=== PATIENT | male | born 1935 | race Caucasian/White ===

== ENCOUNTER → 2016-07-28 | Outpatient (CLI) | payer MEDICARE ==
[2016-07-28 13:30] LABS: ALBUMIN 3.9 GM/DL (3.2-5.2); ALBUMIN/GLOBULIN RATIO 1.22 (1.00-1.93); ALKALINE PHOSPHATASE 72 U/L (45-117); ALT/SGPT 27 U/L (12-78); ANION GAP 9 MEQ/L (8-16); AST/SGOT 15 U/L (15-37); BILIRUBIN,TOTAL 0.9 MG/DL (0.2-1.0); BLOOD UREA NITROGEN 18 MG/DL (7-18); CALCIUM LEVEL 8.8 MG/DL (8.8-10.2); CARBON DIOXIDE LEVEL 28 MEQ/L (21-32); CHLORIDE LEVEL 106 MEQ/L (98-107); CHOLESTEROL LEVEL 152 MG/DL (<200); CREATININE FOR GFR 0.94 MG/DL (0.70-1.30); GLOMERULAR FILTRATION RATE > 60.0 (>35); GLUCOSE, FASTING 123 MG/DL (83-110); MAGNESIUM LEVEL 2.3 MG/DL (1.8-2.4); POTASSIUM SERUM 4.1 MEQ/L (3.5-5.1); SODIUM LEVEL 143 MEQ/L (136-145); TOTAL PROTEIN 7.1 GM/DL (6.4-8.2); TRIGLYCERIDES LEVEL 77 MG/DL (<150)
== END ==
LOC: M WUC 09:04
PROVIDERS: ATTEND Nurse Practitioner Family
DX: I10 Essential (primary) hypertension (principal)

== ENCOUNTER → 2018-03-02 | Outpatient (CLI) | payer MEDICARE | LOC: M WUC 09:53 | DX: R91.8 Other nonspecific abnormal finding of lung field (principal); R06.02 Shortness of breath; R05 Cough | CPT/HCPCS: 71046 ==

== ENCOUNTER → 2021-03-10 | Outpatient (CLI) | payer MEDICARE ==
--- NOTE | 2021-03-10 10:00 | REP ---
INDICATION: J45.901 COMPARISON: 03/02/2018 TECHNIQUE: PA and lateral. FINDINGS: Mediastinum and cardiac silhouette are stable and within normal limits. Lung smith demonstrate chronic changes consistent with the given history of reactive airway disease. Subtle relatively new areas of opacity in the periphery of the right lower lung zone and left base may represent progressive chronic change versus mild acute airspace disease. No effusion. No pneumothorax. IMPRESSION: 1. Chronic changes similar to prior examination. 2. Relatively new areas of opacity as noted above may represent progressive chronic change versus mild acute airspace disease and correlation with physical examination/auscultation is recommended. <Electronically signed by Gregory Fletcher > 03/10/21 [id number]
== END ==
LOC: M WUC 09:18
PROVIDERS: ATTEND Physician Assistant Medical
DX: J98.4 Other disorders of lung (principal); J45.901 Unspecified asthma with (acute) exacerbation

== ENCOUNTER → 2021-03-30 | Outpatient (CLI) | payer MEDICARE ==
--- NOTE | 2021-03-30 14:26 | REP ---
INDICATION: ABN FINDING OF LUNG. COMPARISON: Chest x-ray 03/10/2021, 03/02/2018 TECHNIQUE: Noncontrast images with coronal and sagittal reconstructions provided FINDINGS: Patchy nodular infiltrates in the lateral segment right middle lobe and lateral basal and posterior basal segments of the right lower lobe extending into the deep sulcus there are also some curvilinear opacities in the posterior basal segment of the left lower lobe. Cylindrical bronchiectatic changes are seen in both lower lung zones and some tree in bud appearance of the nodular infiltrate in the right middle lobe peripherally is seen. This would correspond to the radiographic finding on the recent chest x-ray. Some apical pleuroparenchymal scarring is noted bilaterally, right slightly greater than left. No other nodules or infiltrates. No definite effusion. Heart is not enlarged. There is no pericardial thickening or effusion. Coronary artery calcifications seen as well as some atherosclerotic aortic calcifications. No aneurysm. No pathologic sized mediastinal, hilar, axillary or supraclavicular adenopathy. There is no hiatal hernia. Spine shows no compression deformity or focal lesion. There are minor degenerative changes throughout the thoracic region. The sternum, manubrium, medial clavicles, scapulae, humeral heads and visualized ribs are intact. The upper abdomen shows liver and spleen not enlarged and without focal lesion. Gallbladder without calcified stone or mass. The pancreas, adrenal glands, stomach, visualized small bowel loops were all unremarkable. There is a 2.9 cm cyst anteriorly in upper pole right kidney seen only in part. It has no complex features. IMPRESSION: 1. Patchy nodular infiltrates with tree-in-bud appearance peripherally in the lateral segment right middle lobe and more confluent infiltrate/atelectasis posteriorly in the right lower lobe. Bronchiectatic changes are evident in bilateral lungs and some lesser left lower lobe densities with air bronchograms within from those bronchiectatic airways noted. These may all be inflammatory change or fibrosis with superimposed inflammatory change. Follow-up is warranted to confirm improvement or stability. 2. No other significant or acute finding in the chest. 3 cm renal cyst on the right noted. <Electronically signed by Chicho Hopper > 03/30/21 [id number]
== END ==
LOC: M RAD 10:36
PROVIDERS: ATTEND Internal Medicine Pulmonary Disease
DX: R91.8 Other nonspecific abnormal finding of lung field (principal)

== ENCOUNTER → 2021-04-12 | Outpatient (REF) | payer MEDICARE | LOC: M LAB REF 15:09 | PROVIDERS: ATTEND Internal Medicine Pulmonary Disease | DX: J44.9 Chronic obstructive pulmonary disease, unspecified (principal) ==

== ENCOUNTER → 2021-06-14 | Outpatient (REF) | payer MEDICARE | LOC: M LAB REF 16:52 | PROVIDERS: ATTEND Internal Medicine Pulmonary Disease | DX: J44.9 Chronic obstructive pulmonary disease, unspecified (principal) ==

== ENCOUNTER → 2021-12-12 | Outpatient (CLI) | payer MEDICARE | LOC: M PLAIMG 13:27 | PROVIDERS: ATTEND Internal Medicine Pulmonary Disease | DX: R91.8 Other nonspecific abnormal finding of lung field (principal); J47.9 Bronchiectasis, uncomplicated ==

== ENCOUNTER → 2022-07-24 | Outpatient (CLI) | payer MEDICARE | LOC: M PLAIMG 13:52 | PROVIDERS: ATTEND Internal Medicine Pulmonary Disease | DX: J47.9 Bronchiectasis, uncomplicated (principal) ==

== ENCOUNTER → 2023-07-20 | Outpatient (CLI) | payer MEDICARE | LOC: M PLAIMG 13:06 | PROVIDERS: ATTEND Internal Medicine Pulmonary Disease | DX: R91.8 Other nonspecific abnormal finding of lung field (principal); J47.9 Bronchiectasis, uncomplicated ==

== ENCOUNTER 2023-08-04 18:10 | Inpatient (IN) | payer MEDICARE ==
[~2023-08-04] VITALS: Ht 172.7 cm; Wt 159.4 kg
[2023-08-04] MEDS ORDERED: LEVA0.6322 NEB (18:59)
[2023-08-04] MEDS ORDERED: FLUT1BLS2 INH (18:59)
[2023-08-04] MEDS: UNRESOLVED CLARIFICATION ENTRY XX STA (19:03)
[2023-08-04 19:06] LABS: BASO % 0.3 % (0.0-1.0); EOS # 0.3 10^3/uL (0.0-0.5); EOS % 2.5 % (0.0-3.0); HEMATOCRIT 42.7 % (42.0-52.0); HEMOGLOBIN 13.2 g/dl (13.5-17.5); LYMPH % 7.8 % (24.0-44.0); MEAN CORPUSCULAR HEMOGLOBIN 26.1 pg (27.0-33.0); MEAN CORPUSCULAR HGB CONC 30.9 g/dl (32.0-36.5); MEAN CORPUSCULAR VOLUME 84.4 fl (80.0-96.0); MONO # 0.8 10^3/uL (0.0-0.8); MONO % 6.3 % (2.0-8.0); NEUTROPHILS # 10.4 10^3/uL (1.5-8.5); NEUTROPHILS % 82.4 % (36.0-66.0); PLATELET COUNT, AUTOMATED 258 10^3/uL (150-450); RED BLOOD COUNT 5.06 10^6/uL (4.30-6.10); WHITE BLOOD COUNT 12.6 10^3/uL (4.0-10.0)
[2023-08-04 19:26] LABS: INR 1.1; PARTIAL THROMBOPLASTIN TIME 33.4 SECONDS (24.8-34.2); PROTHROMBIN TIME 13.9 SECONDS (12.5-14.5)
[2023-08-04 19:29] LABS: CPK CREATINE PHOSPHOKINASE 65 U/L (46-171)
[2023-08-04 19:30] LABS: ALBUMIN 3.5 G/DL (3.2-5.2); ALKALINE PHOSPHATASE 84 U/L (46-116); ALT/SGPT 18 U/L (7.0-40); AST/SGOT 11 U/L (<34); BILIRUBIN,DIRECT 0.4 MG/DL (<0.4); BLOOD UREA NITROGEN 31 MG/DL (9-23); CALCIUM LEVEL 8.2 MG/DL (8.3-10.6); CARBON DIOXIDE LEVEL 27 MMOL/L (20-31); CHLORIDE LEVEL 109 MMOL/L (98-107); CK-MB VALUE MASS 3.9 NG/ML (<3.6); CREATININE FOR GFR 0.92 MG/DL (0.70-1.30); GLOMERULAR FILTRATION RATE > 60.0 (>35); GLUCOSE, FASTING 124 MG/DL (74-106); POTASSIUM SERUM 4.1 MMOL/L (3.5-5.1); SODIUM LEVEL 141 MMOL/L (136-145); TOTAL PROTEIN 6.9 G/DL (5.7-8.2)
[2023-08-04 19:32] LABS: THYROID STIMULATING HORMONE 0.779 uIU/ML (0.55-4.78)
[2023-08-04] MEDS: IPRATROPIUM 0.5MG/ALBUTEROL 2.5MG INH SOL UD 3ML (DUONEB) NEB ONE (20:07)
[2023-08-04] MEDS: methylPREDNISolone 125MG 2ML VIAL IV ONE (22:29)
[2023-08-04] MEDS ORDERED: GUAI600T12 PO (22:45)
[2023-08-04] MEDS ORDERED: HOME MED LIST COMPLETE! XX SCH (22:50)
[2023-08-04] MEDS: fentaNYL 100 MCG/2 ML INJECTION IV ONE (23:23)
[2023-08-05] VITALS (10 sets, daily range): BP systolic 131–186; BP diastolic 77–92; TEMP 98.1–98.8; O2SAT 86–98
[2023-08-05] MEDS: NS 1,000 ML IV SCH (03:52)
[2023-08-05] MEDS: MORPHINE 2 MG/ML 1ML VIAL IV PRN (04:52)
[2023-08-05] MEDS: **hydrALAZINE HCL** 25 MG TAB PO ONE (05:27)
[2023-08-05] MEDS: MOM 30ML SUSPENSION UDC PO PRN (06:22)
[2023-08-05] MEDS ORDERED: MORPHINE 4 MG/ML 1ML VIAL IV PRN (09:35)
[2023-08-05] MEDS: IPRATROPIUM 0.5MG/ALBUTEROL 2.5MG INH SOL UD 3ML (DUONEB) NEB SCH (10:01)
[2023-08-05] MEDS: SYMBICORT 160/4.5MCG INHALER 6GM INH SCH (10:01)
[2023-08-05] MEDS: AMPICILLIN SOD/SULBACTAM SOD 3 GM in D5W MINI-BAG PLUS 100 ML IV SCH (12:04)
[2023-08-05] MEDS: SODIUM CHLORIDE NASAL 0.65% SPRAY BTL (OCEAN) SCH (14:12)
[2023-08-05] MEDS: FLUTICASONE PROP 0.05% NASAL SPRAY 16 GM (FLONASE) NARES SCH (14:14)
[2023-08-05] MEDS: CARBAMIDE PEROXIDE 6.5% OTIC SOLN 15ML AU SCH (14:14)
[2023-08-05] MEDS: HEPARIN SOD (PORCINE) 5000UNITS/ML 1ML VIAL/SYRINGE SQ SCH (14:17)
[2023-08-05] MEDS: FLUZONE HIGH DOSE(65YR UP)QUAD/PF 240MCG/0.7ML SYRINGE IM.IMMUN ONE (14:19)
[2023-08-05] MEDS: PREVNAR-20 VACCINE 0.5ML SYRINGE IM.IMMUN ONE (14:23)
[2023-08-05] MEDS: ASPIRIN 81MG ENTERIC TABLET PO SCH (20:18)
[2023-08-05] MEDS: ATORVASTATIN 20 MG TAB PO SCH (20:19)
[2023-08-05] MEDS: ADVAIR HFA 230/21MCG INHALER INH SCH (20:26)
[2023-08-06] VITALS (9 sets, daily range): BP systolic 133–170; BP diastolic 60–84; TEMP 97.4–99.1; O2SAT 78–97
[2023-08-06 06:05] LABS: HEMATOCRIT 36.9 % (42.0-52.0); HEMOGLOBIN 11.5 g/dl (13.5-17.5); MEAN CORPUSCULAR HEMOGLOBIN 25.8 pg (27.0-33.0); MEAN CORPUSCULAR HGB CONC 31.2 g/dl (32.0-36.5); MEAN CORPUSCULAR VOLUME 82.7 fl (80.0-96.0); PLATELET COUNT, AUTOMATED 219 10^3/uL (150-450); RED BLOOD COUNT 4.46 10^6/uL (4.30-6.10); WHITE BLOOD COUNT 16.6 10^3/uL (4.0-10.0)
[2023-08-06 06:21] LABS: BLOOD UREA NITROGEN 32 MG/DL (9-23); CALCIUM LEVEL 7.7 MG/DL (8.3-10.6); CARBON DIOXIDE LEVEL 28 MMOL/L (20-31); CHLORIDE LEVEL 108 MMOL/L (98-107); CREATININE FOR GFR 0.89 MG/DL (0.70-1.30); GLOMERULAR FILTRATION RATE > 60.0 (>35); GLUCOSE, FASTING 111 MG/DL (74-106); POTASSIUM SERUM 4.4 MMOL/L (3.5-5.1); SODIUM LEVEL 142 MMOL/L (136-145)
[2023-08-06] MEDS: TAMSULOSIN 0.4 MG CAP PO SCH (08:34)
[2023-08-06] MEDS ORDERED: ISOVUE-370 76% 100ML VIAL As Ordered ONE (10:29)
[2023-08-06] MEDS: ACETAMINOPHEN TAB 650MG DOSE (2X325MG) PO PRN (11:46)
[2023-08-06] MEDS ORDERED: ceFAZolin 1GM VIAL As Ordered ONE (13:35)
[2023-08-06] MEDS ORDERED: ONDANSETRON 4MG 2ML VIAL As Ordered ONE (13:39)
[2023-08-06] MEDS ORDERED: ROCURONIUM BROMIDE 50MG/5ML VIAL As Ordered ONE (13:39)
[2023-08-06] MEDS ORDERED: propofoL 200 MG/20 ML VIAL As Ordered ONE (13:39)
[2023-08-06] MEDS ORDERED: fentaNYL 100 MCG/2 ML INJECTION As Ordered ONE (13:39)
[2023-08-06] MEDS ORDERED: LIDOCAINE 2% 100MG/5ML SDV (FOR ANES.) As Ordered ONE (13:39)
[2023-08-06] MEDS ORDERED: ACETAMINOPHEN 1000MG 100ML IV BAG As Ordered ONE (13:42)
[2023-08-06] MEDS ORDERED: ETOMIDATE INJ 20MG/10ML VIAL As Ordered ONE (14:23)
[2023-08-06] MEDS: ceFAZolin 2 GM/D5W 50 ML IV BAG As Ordered ONE (14:45)
[2023-08-06] MEDS ORDERED: HYDROmorphone HCL 2MG/ML 1ML VIAL As Ordered ONE (15:41)
[2023-08-06] MEDS: IPRATROPIUM 0.5MG/ALBUTEROL 2.5MG INH SOL UD 3ML (DUONEB) NEB ONE (17:14)
[2023-08-06] MEDS: FUROSEMIDE 40MG/4ML VIAL IV ONE (17:21)
[2023-08-06] MEDS: methylPREDNISolone 125MG 2ML VIAL IV ONE (17:25)
[2023-08-06] MEDS ORDERED: methylPREDNISolone 40MG 1ML VIAL IV ONE (17:25)
[2023-08-06] MEDS ORDERED: methylPREDNISolone 125MG 2ML VIAL As Ordered ONE (17:27)
[2023-08-06 17:34] LABS: ABG BASE EXCESS 0.1 (-2.0-2.0); ABG HCO3 26.3 MMOL/L (22.0-26.0); ABG O2 SATURATION 91.3 % (95.0-99.0); ABG STANDARD HCO3 24.5 MMOL/L. (22.0-26.0); ABG TOTAL CO2 27.8 MMOL/L (23.0-31.0); ABG pH (ARTERIAL) 7.347 UNITS (7.350-7.450)
[2023-08-06] MEDS: IPRATROPIUM 0.5MG/ALBUTEROL 2.5MG INH SOL UD 3ML (DUONEB) NEB SCH (18:55)
[2023-08-06 19:39] LABS: LDH LACTATE DEHYDROGENASE 241 U/L (120-246)
[2023-08-06 19:40] LABS: BLOOD UREA NITROGEN 27 MG/DL (9-23); CALCIUM LEVEL 7.2 MG/DL (8.3-10.6); CARBON DIOXIDE LEVEL 28 MMOL/L (20-31); CHLORIDE LEVEL 107 MMOL/L (98-107); CREATININE FOR GFR 0.88 MG/DL (0.70-1.30); GLOMERULAR FILTRATION RATE > 60.0 (>35); GLUCOSE, FASTING 149 MG/DL (74-106); POTASSIUM SERUM 4.3 MMOL/L (3.5-5.1); SODIUM LEVEL 139 MMOL/L (136-145)
[2023-08-06] MEDS: ceFAZolin SOD 2 GM in IV 1 EA IV SCH (23:49)
[2023-08-07] MEDS: methylPREDNISolone 40MG 1ML VIAL IV SCH (03:27)
[2023-08-07 03:29] VITALS: BP 166/74; TEMP 97.7; O2SAT 96
[2023-08-07 05:56] LABS: HEMATOCRIT 35.1 % (42.0-52.0); MEAN CORPUSCULAR HEMOGLOBIN 25.7 pg (27.0-33.0); MEAN CORPUSCULAR HGB CONC 31.3 g/dl (32.0-36.5); PLATELET COUNT, AUTOMATED 206 10^3/uL (150-450); RED BLOOD COUNT 4.28 10^6/uL (4.30-6.10); WHITE BLOOD COUNT 11.8 10^3/uL (4.0-10.0)
[2023-08-07 06:24] LABS: BLOOD UREA NITROGEN 26 MG/DL (9-23); CALCIUM LEVEL 7.5 MG/DL (8.3-10.6); CARBON DIOXIDE LEVEL 30 MMOL/L (20-31); CHLORIDE LEVEL 103 MMOL/L (98-107); CREATININE FOR GFR 0.91 MG/DL (0.70-1.30); GLOMERULAR FILTRATION RATE > 60.0 (>35); GLUCOSE, FASTING 166 MG/DL (74-106); MAGNESIUM LEVEL 2.1 MG/DL (1.8-2.4); PHOSPHORUS LEVEL 3.5 MG/DL (2.4-5.1); POTASSIUM SERUM 4.1 MMOL/L (3.5-5.1); SODIUM LEVEL 139 MMOL/L (136-145)
[2023-08-07] MEDS ORDERED: KETOROLAC 30 MG/ML 1ML VIAL IV PRN (07:00)
[2023-08-07 07:33] VITALS: BP 172/78; TEMP 97.8; O2SAT 93
[2023-08-07] MEDS: ACETAMINOPHEN TAB 650MG DOSE (2X325MG) PO SCH (09:35)
[2023-08-07] MEDS: SENOKOT S TAB PO SCH (09:35)
[2023-08-07 12:08] VITALS: BP 152/70; TEMP 97.6; O2SAT 97
[2023-08-07 19:16] VITALS: BP 132/62; TEMP 98.2; O2SAT 96
[2023-08-07] MEDS: HEPARIN SOD (PORCINE) 5000UNITS/ML 1ML VIAL/SYRINGE SQ SCH (20:41)
[2023-08-07 20:44] VITALS: BP 140/63; TEMP 98.1; O2SAT 94
[2023-08-08] MEDS: PANTOPRAZOLE 20 MG TAB PO ONE (02:27)
[2023-08-08 04:52] VITALS: BP 132/69; TEMP 99; O2SAT 96
[2023-08-08 08:00] VITALS: BP 110/76; TEMP 99.3
[2023-08-08] MEDS: KETOROLAC 30 MG/ML 1ML VIAL IV SCH (15:00)
[2023-08-08 16:22] VITALS: BP 129/80; TEMP 98.2; O2SAT 93
[2023-08-08] MEDS: QUEtiapine FUMARATE 25 MG TAB PO SCH (18:00)
[2023-08-08 19:24] VITALS: BP 178/76; TEMP 98.2; O2SAT 90
[2023-08-08 20:30] VITALS: BP 178/80
[2023-08-08] MEDS: AUGMENTIN 875 MG TAB PO SCH (21:54)
[2023-08-08] MEDS: oxyCODONE 5MG TAB PO PRN (23:15)
[2023-08-09 04:11] VITALS: BP 168/78; TEMP 98.6; O2SAT 95
[2023-08-09 07:45] VITALS: BP 172/82; TEMP 98.9; O2SAT 94
[2023-08-09] MEDS: amLODIPine 5 MG TAB PO SCH (09:00)
[2023-08-09 12:03] VITALS: BP 182/89; O2SAT 90
[2023-08-09] MEDS: MOM 30ML SUSPENSION UDC PO SCH (12:20)
[2023-08-09] MEDS: OLANZapine INTRAMUSCULAR 10MG VIAL IM ONE (13:25)
[2023-08-09 15:35] VITALS: BP 162/72; TEMP 98.3; O2SAT 95
[2023-08-09 19:29] VITALS: BP 163/88; TEMP 97.6; O2SAT 96
[2023-08-09] MEDS: MIRALAX *UNIT DOSE* 17GM PACKET PO PRN (19:37)
[2023-08-09 23:39] VITALS: O2SAT 94
[2023-08-10] VITALS (17 sets, daily range): BP systolic 123–146; BP diastolic 59–80; TEMP 97.7–98.5; O2SAT 92–98
[2023-08-10] MEDS: HALOPERIDOL 5MG/ML 1ML VIAL IM PRN (04:04)
[2023-08-10 05:43] LABS: ABG BASE EXCESS 4.2 (-2.0-2.0); ABG HCO3 28.7 MMOL/L (22.0-26.0); ABG O2 SATURATION 97.5 % (95.0-99.0); ABG PARTIAL PRESSURE CO2 42.5 mmHg (35.0-45.0); ABG PARTIAL PRESSURE O2 96.2 mmHg (75.0-100.0); ABG STANDARD HCO3 28.3 MMOL/L. (22.0-26.0); ABG pH (ARTERIAL) 7.447 UNITS (7.350-7.450)
[2023-08-10] MEDS: LEVALBUTEROL 1.25MG 0.5ML CONCENTRATE NEB INH ONE (06:24)
[2023-08-10] MEDS: predniSONE 20 MG TAB PO SCH (08:21)
[2023-08-10] MEDS: QUEtiapine FUMARATE 25 MG TAB PO SCH (20:29)
[2023-08-10] MEDS: AMPICILLIN SOD/SULBACTAM SOD 3 GM in D5W MINI-BAG PLUS 100 ML IV SCH (21:00)
[2023-08-10] MEDS: NS 1,000 ML IV SCH (22:17)
[2023-08-11] VITALS (15 sets, daily range): BP systolic 98–136; BP diastolic 51–67; TEMP 96.9–97.7; O2SAT 92–100
[2023-08-11 00:52] LABS: HEMATOCRIT 32.7 % (42.0-52.0); HEMOGLOBIN 10.2 g/dl (13.5-17.5); MEAN CORPUSCULAR HEMOGLOBIN 26.1 pg (27.0-33.0); MEAN CORPUSCULAR HGB CONC 31.2 g/dl (32.0-36.5); MEAN CORPUSCULAR VOLUME 83.6 fl (80.0-96.0); PLATELET COUNT, AUTOMATED 231 10^3/uL (150-450); RED BLOOD COUNT 3.91 10^6/uL (4.30-6.10); WHITE BLOOD COUNT 20.2 10^3/uL (4.0-10.0)
[2023-08-11 01:23] LABS: BLOOD UREA NITROGEN 61 MG/DL (9-23); CALCIUM LEVEL 7.4 MG/DL (8.3-10.6); CARBON DIOXIDE LEVEL 33 MMOL/L (20-31); CHLORIDE LEVEL 106 MMOL/L (98-107); CREATININE FOR GFR 0.99 MG/DL (0.70-1.30); GLOMERULAR FILTRATION RATE > 60.0 (>35); GLUCOSE, FASTING 115 MG/DL (74-106); SODIUM LEVEL 141 MMOL/L (136-145)
[2023-08-11] MEDS: predniSONE 10MG TAB PO SCH (10:45)
[2023-08-11] MEDS: NS 500 ML IV ONE (18:02)
[2023-08-12 03:31] VITALS: BP 129/60; TEMP 98; O2SAT 97
[2023-08-12 07:43] VITALS: BP 110/54; TEMP 97.5; O2SAT 99
[2023-08-12 08:29] LABS: BASO % 0.1 % (0.0-1.0); EOS % 0.2 % (0.0-3.0); HEMATOCRIT 32.1 % (42.0-52.0); HEMOGLOBIN 9.9 g/dl (13.5-17.5); LYMPH # 0.7 10^3/uL (1.5-5.0); LYMPH % 3.1 % (24.0-44.0); MEAN CORPUSCULAR HGB CONC 30.8 g/dl (32.0-36.5); MEAN CORPUSCULAR VOLUME 84.3 fl (80.0-96.0); MONO # 1.1 10^3/uL (0.0-0.8); MONO % 4.5 % (2.0-8.0); NEUTROPHILS # 21.6 10^3/uL (1.5-8.5); NEUTROPHILS % 91.3 % (36.0-66.0); PLATELET COUNT, AUTOMATED 248 10^3/uL (150-450); RED BLOOD COUNT 3.81 10^6/uL (4.30-6.10); WHITE BLOOD COUNT 23.7 10^3/uL (4.0-10.0)
[2023-08-12 08:51] LABS: BLOOD UREA NITROGEN 60 MG/DL (9-23); CALCIUM LEVEL 7.2 MG/DL (8.3-10.6); CARBON DIOXIDE LEVEL 34 MMOL/L (20-31); CHLORIDE LEVEL 107 MMOL/L (98-107); CREATININE FOR GFR 0.99 MG/DL (0.70-1.30); GLOMERULAR FILTRATION RATE > 60.0 (>35); GLUCOSE, FASTING 148 MG/DL (74-106); POTASSIUM SERUM 4.6 MMOL/L (3.5-5.1); SODIUM LEVEL 142 MMOL/L (136-145)
[2023-08-12] MEDS: LEVALBUTEROL 1.25MG 0.5ML CONCENTRATE NEB INH PRN (08:52)
[2023-08-12] MEDS: BISACODYL 10MG SUPP PR ONE (09:32)
[2023-08-12] MEDS: FLEET ENEMA PR ONE (15:20)
[2023-08-12] MEDS: NS 500 ML IV ONE (15:38)
[2023-08-12 16:00] VITALS: BP 129/59; TEMP 97; O2SAT 92
[2023-08-12 19:36] VITALS: BP 135/61; TEMP 98.8; O2SAT 92
[2023-08-12 20:00] VITALS: BP 120/46; TEMP 97.9; O2SAT 91
[2023-08-13 05:38] VITALS: BP 92/40; TEMP 97.9; O2SAT 94
[2023-08-13] MEDS: predniSONE 20 MG TAB PO SCH (08:26)
[2023-08-13 09:42] VITALS: BP 119/61; TEMP 97; O2SAT 94
[2023-08-13 10:01] LABS: BASO % 0.1 % (0.0-1.0); EOS % 0.1 % (0.0-3.0); HEMATOCRIT 30.4 % (42.0-52.0); HEMOGLOBIN 9.4 g/dl (13.5-17.5); LYMPH # 0.6 10^3/uL (1.5-5.0); LYMPH % 3.1 % (24.0-44.0); MEAN CORPUSCULAR HEMOGLOBIN 26.1 pg (27.0-33.0); MEAN CORPUSCULAR HGB CONC 30.9 g/dl (32.0-36.5); MEAN CORPUSCULAR VOLUME 84.4 fl (80.0-96.0); MONO # 0.8 10^3/uL (0.0-0.8); MONO % 4.3 % (2.0-8.0); NEUTROPHILS # 17.1 10^3/uL (1.5-8.5); NEUTROPHILS % 91.4 % (36.0-66.0); PLATELET COUNT, AUTOMATED 252 10^3/uL (150-450); WHITE BLOOD COUNT 18.7 10^3/uL (4.0-10.0)
[2023-08-13 10:20] LABS: BLOOD UREA NITROGEN 51 MG/DL (9-23); CALCIUM LEVEL 7.3 MG/DL (8.3-10.6); CARBON DIOXIDE LEVEL 31 MMOL/L (20-31); CHLORIDE LEVEL 109 MMOL/L (98-107); CREATININE FOR GFR 0.84 MG/DL (0.70-1.30); GLOMERULAR FILTRATION RATE > 60.0 (>35); GLUCOSE, FASTING 132 MG/DL (74-106); POTASSIUM SERUM 5.1 MMOL/L (3.5-5.1); SODIUM LEVEL 142 MMOL/L (136-145)
[2023-08-13 12:00] VITALS: BP 131/51
[2023-08-13] MEDS: NS 1,000 ML IV ONE (12:57)
[2023-08-13 15:19] VITALS: BP 133/53; TEMP 97.5; O2SAT 96
[2023-08-13 21:42] VITALS: BP 131/68; TEMP 97.5; O2SAT 91
[2023-08-13] MEDS: PERMETHRIN 5% CREAM 60 GM TOP ONE (23:25)
[2023-08-14 05:06] VITALS: BP 131/68; TEMP 97.5; O2SAT 91
[2023-08-14 06:25] LABS: BASO % 0.2 % (0.0-1.0); EOS # 0.1 10^3/uL (0.0-0.5); EOS % 0.7 % (0.0-3.0); HEMATOCRIT 28.6 % (42.0-52.0); HEMOGLOBIN 8.7 g/dl (13.5-17.5); LYMPH # 1.1 10^3/uL (1.5-5.0); LYMPH % 6.3 % (24.0-44.0); MEAN CORPUSCULAR HEMOGLOBIN 25.2 pg (27.0-33.0); MEAN CORPUSCULAR HGB CONC 30.4 g/dl (32.0-36.5); MEAN CORPUSCULAR VOLUME 82.9 fl (80.0-96.0); MONO # 1.1 10^3/uL (0.0-0.8); MONO % 6.5 % (2.0-8.0); NEUTROPHILS # 14.5 10^3/uL (1.5-8.5); NEUTROPHILS % 84.1 % (36.0-66.0); PLATELET COUNT, AUTOMATED 272 10^3/uL (150-450); RED BLOOD COUNT 3.45 10^6/uL (4.30-6.10); WHITE BLOOD COUNT 17.2 10^3/uL (4.0-10.0)
[2023-08-14 06:53] LABS: BLOOD UREA NITROGEN 40 MG/DL (9-23); CALCIUM LEVEL 7.3 MG/DL (8.3-10.6); CARBON DIOXIDE LEVEL 29 MMOL/L (20-31); CHLORIDE LEVEL 111 MMOL/L (98-107); CREATININE FOR GFR 0.76 MG/DL (0.70-1.30); GLOMERULAR FILTRATION RATE > 60.0 (>35); GLUCOSE, FASTING 105 MG/DL (74-106); POTASSIUM SERUM 4.5 MMOL/L (3.5-5.1); SODIUM LEVEL 142 MMOL/L (136-145)
[2023-08-14 14:00] VITALS: BP 138/69; TEMP 97.5; O2SAT 94
[2023-08-14] MEDS: OLANZapine INTRAMUSCULAR 10MG VIAL IM PRN (15:38)
[2023-08-14 22:38] VITALS: BP 140/71; TEMP 97.3; O2SAT 93
[2023-08-15] MEDS ORDERED: HALOPERIDOL DECANOATE 100 MG/ML 1ML VIAL IM ONE (00:05)
[2023-08-15] MEDS ORDERED: HALOPERIDOL 5MG/ML 1ML VIAL IM PRN (00:15)
[2023-08-15] MEDS ORDERED: HALOPERIDOL 5MG/ML 1ML VIAL IM ONE (01:00)
[2023-08-15 06:00] VITALS: BP 152/78; TEMP 97.7; O2SAT 97
[2023-08-15 06:29] LABS: BASO % 0.3 % (0.0-1.0); EOS # 0.1 10^3/uL (0.0-0.5); EOS % 0.7 % (0.0-3.0); HEMATOCRIT 28.6 % (42.0-52.0); HEMOGLOBIN 8.8 g/dl (13.5-17.5); LYMPH # 1.1 10^3/uL (1.5-5.0); LYMPH % 8.5 % (24.0-44.0); MEAN CORPUSCULAR HEMOGLOBIN 25.7 pg (27.0-33.0); MEAN CORPUSCULAR HGB CONC 30.8 g/dl (32.0-36.5); MEAN CORPUSCULAR VOLUME 83.4 fl (80.0-96.0); MONO % 7.5 % (2.0-8.0); NEUTROPHILS # 10.8 10^3/uL (1.5-8.5); NEUTROPHILS % 80.5 % (36.0-66.0); PLATELET COUNT, AUTOMATED 295 10^3/uL (150-450); RED BLOOD COUNT 3.43 10^6/uL (4.30-6.10); WHITE BLOOD COUNT 13.4 10^3/uL (4.0-10.0)
[2023-08-15 06:51] LABS: BLOOD UREA NITROGEN 33 MG/DL (9-23); CALCIUM LEVEL 7.5 MG/DL (8.3-10.6); CARBON DIOXIDE LEVEL 28 MMOL/L (20-31); CHLORIDE LEVEL 109 MMOL/L (98-107); CREATININE FOR GFR 0.75 MG/DL (0.70-1.30); GLOMERULAR FILTRATION RATE > 60.0 (>35); GLUCOSE, FASTING 83 MG/DL (74-106); POTASSIUM SERUM 4.2 MMOL/L (3.5-5.1); SODIUM LEVEL 139 MMOL/L (136-145)
[2023-08-15] MEDS: predniSONE 10MG TAB PO SCH (09:00)
[2023-08-15 23:00] VITALS: BP 102/65; TEMP 97.3; O2SAT 97
[2023-08-16] MEDS: OLANZapine INTRAMUSCULAR 10MG VIAL IM SCH ×2 (00:04→15:01)
[2023-08-16 05:59] VITALS: BP 165/69; TEMP 97.2; O2SAT 97
[2023-08-16 06:42] LABS: BASO # 0.1 10^3/uL (0.0-0.2); BASO % 0.3 % (0.0-1.0); EOS # 0.2 10^3/uL (0.0-0.5); EOS % 1.5 % (0.0-3.0); HEMATOCRIT 29.6 % (42.0-52.0); HEMOGLOBIN 9.4 g/dl (13.5-17.5); LYMPH % 6.8 % (24.0-44.0); MEAN CORPUSCULAR HEMOGLOBIN 26.1 pg (27.0-33.0); MEAN CORPUSCULAR HGB CONC 31.8 g/dl (32.0-36.5); MEAN CORPUSCULAR VOLUME 82.2 fl (80.0-96.0); MONO % 6.8 % (2.0-8.0); NEUTROPHILS # 12.1 10^3/uL (1.5-8.5); NEUTROPHILS % 81.9 % (36.0-66.0); PLATELET COUNT, AUTOMATED 287 10^3/uL (150-450); WHITE BLOOD COUNT 14.8 10^3/uL (4.0-10.0)
[2023-08-16 07:08] LABS: BLOOD UREA NITROGEN 31 MG/DL (9-23); CALCIUM LEVEL 7.3 MG/DL (8.3-10.6); CARBON DIOXIDE LEVEL 24 MMOL/L (20-31); CHLORIDE LEVEL 111 MMOL/L (98-107); GLOMERULAR FILTRATION RATE > 60.0 (>35); GLUCOSE, FASTING 60 MG/DL (74-106); POTASSIUM SERUM 4.4 MMOL/L (3.5-5.1); SODIUM LEVEL 141 MMOL/L (136-145)
[2023-08-16] MEDS: D5W/0.9% SODIUM CHLORIDE 1,000 ML IV ONE (12:58)
[2023-08-16] MEDS ORDERED: GLUCOSE 4GM CHEW TABLET PO PRN (13:55)
[2023-08-16] MEDS ORDERED: GLUCAGON INJ 1MG VIAL SC PRN (13:55)
[2023-08-16] MEDS ORDERED: DEXTROSE 50% 50ML SYRINGE IV PRN (13:55)
[2023-08-16 14:00] VITALS: TEMP 97.5; O2SAT 99
[2023-08-16 14:14] VITALS: BP 132/64
[2023-08-16] MEDS: KETOROLAC 30 MG/ML 1ML VIAL IV ONE (15:00)
[2023-08-16 20:38] VITALS: BP 132/67; TEMP 97.7; O2SAT 100
[2023-08-17 01:30] VITALS: BP 110/86; TEMP 97.2; O2SAT 95
[2023-08-17 02:46] VITALS: O2SAT 98
[2023-08-17 05:39] VITALS: BP 136/64; TEMP 97; O2SAT 98
[2023-08-17 06:27] LABS: BASO % 0.2 % (0.0-1.0); EOS # 0.2 10^3/uL (0.0-0.5); EOS % 1.3 % (0.0-3.0); HEMATOCRIT 28.9 % (42.0-52.0); HEMOGLOBIN 8.9 g/dl (13.5-17.5); LYMPH # 0.7 10^3/uL (1.5-5.0); LYMPH % 4.1 % (24.0-44.0); MEAN CORPUSCULAR HGB CONC 30.8 g/dl (32.0-36.5); MEAN CORPUSCULAR VOLUME 84.5 fl (80.0-96.0); NEUTROPHILS # 14.3 10^3/uL (1.5-8.5); PLATELET COUNT, AUTOMATED 276 10^3/uL (150-450); RED BLOOD COUNT 3.42 10^6/uL (4.30-6.10); WHITE BLOOD COUNT 16.6 10^3/uL (4.0-10.0)
[2023-08-17 06:51] LABS: BLOOD UREA NITROGEN 31 MG/DL (9-23); CALCIUM LEVEL 7.3 MG/DL (8.3-10.6); CARBON DIOXIDE LEVEL 27 MMOL/L (20-31); CHLORIDE LEVEL 111 MMOL/L (98-107); CREATININE FOR GFR 0.74 MG/DL (0.70-1.30); GLOMERULAR FILTRATION RATE > 60.0 (>35); GLUCOSE, FASTING 98 MG/DL (74-106); SODIUM LEVEL 142 MMOL/L (136-145)
[2023-08-17] MEDS: OLANZapine 2.5MG TABLET PO SCH ×2 (08:59→20:45)
[2023-08-17 13:30] VITALS: BP 110/86; TEMP 97.2; O2SAT 95
[2023-08-17] MEDS ORDERED: KETOROLAC 30 MG/ML 1ML VIAL IV PRN (14:00)
[2023-08-17 22:00] VITALS: BP 122/54; TEMP 97.7; O2SAT 95
[2023-08-18 06:00] VITALS: BP 145/67; TEMP 97.3; O2SAT 90
[2023-08-18 06:08] LABS: BASO % 0.1 % (0.0-1.0); EOS # 0.2 10^3/uL (0.0-0.5); EOS % 1.1 % (0.0-3.0); HEMOGLOBIN 8.7 g/dl (13.5-17.5); LYMPH % 5.4 % (24.0-44.0); MEAN CORPUSCULAR HEMOGLOBIN 26.3 pg (27.0-33.0); MEAN CORPUSCULAR HGB CONC 31.1 g/dl (32.0-36.5); MEAN CORPUSCULAR VOLUME 84.6 fl (80.0-96.0); MONO # 1.2 10^3/uL (0.0-0.8); MONO % 6.5 % (2.0-8.0); NEUTROPHILS # 15.6 10^3/uL (1.5-8.5); NEUTROPHILS % 83.8 % (36.0-66.0); PLATELET COUNT, AUTOMATED 297 10^3/uL (150-450); RED BLOOD COUNT 3.31 10^6/uL (4.30-6.10); WHITE BLOOD COUNT 18.6 10^3/uL (4.0-10.0)
[2023-08-18 07:53] LABS: BLOOD UREA NITROGEN 38 MG/DL (9-23); CALCIUM LEVEL 7.3 MG/DL (8.3-10.6); CARBON DIOXIDE LEVEL 27 MMOL/L (20-31); CHLORIDE LEVEL 110 MMOL/L (98-107); GLOMERULAR FILTRATION RATE > 60.0 (>35); GLUCOSE, FASTING 155 MG/DL (74-106); POTASSIUM SERUM 4.2 MMOL/L (3.5-5.1); SODIUM LEVEL 141 MMOL/L (136-145)
[2023-08-18 14:00] VITALS: BP 121/93; TEMP 97.5; O2SAT 91
[2023-08-18 21:30] VITALS: BP 126/62; TEMP 97.5; O2SAT 94
[2023-08-19 05:30] VITALS: BP 132/60; TEMP 97.5; O2SAT 95
[2023-08-19 06:08] LABS: BASO % 0.2 % (0.0-1.0); EOS # 0.3 10^3/uL (0.0-0.5); HEMATOCRIT 26.2 % (42.0-52.0); HEMOGLOBIN 8.2 g/dl (13.5-17.5); LYMPH # 0.9 10^3/uL (1.5-5.0); LYMPH % 5.6 % (24.0-44.0); MEAN CORPUSCULAR HEMOGLOBIN 26.3 pg (27.0-33.0); MEAN CORPUSCULAR HGB CONC 31.3 g/dl (32.0-36.5); MONO % 6.7 % (2.0-8.0); NEUTROPHILS # 12.4 10^3/uL (1.5-8.5); NEUTROPHILS % 81.3 % (36.0-66.0); PLATELET COUNT, AUTOMATED 304 10^3/uL (150-450); RED BLOOD COUNT 3.12 10^6/uL (4.30-6.10); WHITE BLOOD COUNT 15.2 10^3/uL (4.0-10.0)
[2023-08-19 06:32] LABS: BLOOD UREA NITROGEN 31 MG/DL (9-23); CALCIUM LEVEL 7.2 MG/DL (8.3-10.6); CARBON DIOXIDE LEVEL 25 MMOL/L (20-31); CHLORIDE LEVEL 112 MMOL/L (98-107); CREATININE FOR GFR 0.72 MG/DL (0.70-1.30); GLOMERULAR FILTRATION RATE > 60.0 (>35); GLUCOSE, FASTING 130 MG/DL (74-106); POTASSIUM SERUM 4.2 MMOL/L (3.5-5.1); SODIUM LEVEL 141 MMOL/L (136-145)
[2023-08-19 14:00] VITALS: BP 134/61; TEMP 97.5; O2SAT 97
[2023-08-19 20:40] VITALS: BP 126/58; TEMP 97; O2SAT 94
[2023-08-20] VITALS (8 sets, daily range): BP systolic 115–138; BP diastolic 59–67; TEMP 97.2–97.9; O2SAT 92–100
[2023-08-20 06:30] LABS: BASO % 0.3 % (0.0-1.0); EOS # 0.3 10^3/uL (0.0-0.5); EOS % 1.9 % (0.0-3.0); HEMATOCRIT 24.8 % (42.0-52.0); HEMOGLOBIN 7.7 g/dl (13.5-17.5); LYMPH # 1.1 10^3/uL (1.5-5.0); LYMPH % 7.6 % (24.0-44.0); MEAN CORPUSCULAR HEMOGLOBIN 26.2 pg (27.0-33.0); MEAN CORPUSCULAR VOLUME 84.4 fl (80.0-96.0); MONO % 6.7 % (2.0-8.0); NEUTROPHILS # 11.4 10^3/uL (1.5-8.5); NEUTROPHILS % 78.6 % (36.0-66.0); PLATELET COUNT, AUTOMATED 302 10^3/uL (150-450); RED BLOOD COUNT 2.94 10^6/uL (4.30-6.10); WHITE BLOOD COUNT 14.6 10^3/uL (4.0-10.0)
[2023-08-20 07:00] LABS: BLOOD UREA NITROGEN 31 MG/DL (9-23); CALCIUM LEVEL 7.1 MG/DL (8.3-10.6); CARBON DIOXIDE LEVEL 26 MMOL/L (20-31); CHLORIDE LEVEL 114 MMOL/L (98-107); CREATININE FOR GFR 0.64 MG/DL (0.70-1.30); GLOMERULAR FILTRATION RATE > 60.0 (>35); GLUCOSE, FASTING 107 MG/DL (74-106); POTASSIUM SERUM 4.4 MMOL/L (3.5-5.1); SODIUM LEVEL 142 MMOL/L (136-145)
[2023-08-20] MEDS: FERROUS GLUCONATE 324 MG TAB PO SCH (14:25)
[2023-08-20 17:33] LABS: HEMATOCRIT 28.6 % (42.0-52.0); MEAN CORPUSCULAR HGB CONC 31.5 g/dl (32.0-36.5); MEAN CORPUSCULAR VOLUME 85.9 fl (80.0-96.0); PLATELET COUNT, AUTOMATED 329 10^3/uL (150-450); RED BLOOD COUNT 3.33 10^6/uL (4.30-6.10); WHITE BLOOD COUNT 19.4 10^3/uL (4.0-10.0)
[2023-08-20] MEDS: OLANZapine 2.5MG TABLET PO SCH (21:00)
[2023-08-21] VITALS: BP 110/58; TEMP 97.4; O2SAT 93
[2023-08-21 06:47] VITALS: BP 126/63; TEMP 96.8; O2SAT 92
[2023-08-21 08:09] LABS: BASO % 0.2 % (0.0-1.0); EOS # 0.3 10^3/uL (0.0-0.5); EOS % 1.6 % (0.0-3.0); HEMOGLOBIN 7.7 g/dl (13.5-17.5); LYMPH # 1.2 10^3/uL (1.5-5.0); MEAN CORPUSCULAR HEMOGLOBIN 26.6 pg (27.0-33.0); MEAN CORPUSCULAR HGB CONC 30.8 g/dl (32.0-36.5); MEAN CORPUSCULAR VOLUME 86.5 fl (80.0-96.0); MONO % 5.8 % (2.0-8.0); NEUTROPHILS % 81.7 % (36.0-66.0); PLATELET COUNT, AUTOMATED 312 10^3/uL (150-450); RED BLOOD COUNT 2.89 10^6/uL (4.30-6.10); WHITE BLOOD COUNT 17.2 10^3/uL (4.0-10.0)
[2023-08-21 08:41] LABS: BLOOD UREA NITROGEN 43 MG/DL (9-23); CALCIUM LEVEL 7.5 MG/DL (8.3-10.6); CARBON DIOXIDE LEVEL 27 MMOL/L (20-31); CHLORIDE LEVEL 115 MMOL/L (98-107); CREATININE FOR GFR 0.77 MG/DL (0.70-1.30); GLOMERULAR FILTRATION RATE > 60.0 (>35); GLUCOSE, FASTING 118 MG/DL (74-106); POTASSIUM SERUM 4.3 MMOL/L (3.5-5.1); SODIUM LEVEL 143 MMOL/L (136-145)
[2023-08-21 09:48] LABS: PROCALCITONIN 0.06 ng/ml
[2023-08-21] MEDS ORDERED: ASPI81TAEC PO (10:21)
[2023-08-21] MEDS ORDERED: SENN-52 PO (10:21)
[2023-08-21] MEDS ORDERED: OXYC-517 PO (10:21)
[2023-08-21] MEDS ORDERED: Sodium Chloride Nasal Spray (10:21)
[2023-08-21] MEDS ORDERED: FLUTISP NARES (10:21)
[2023-08-21] MEDS ORDERED: OLAN2.5T25 PO (10:21)
[2023-08-21] MEDS ORDERED: MOM30SS2 PO (10:21)
[2023-08-21] MEDS ORDERED: ACET1TAB55 PO (10:21)
[2023-08-21] MEDS ORDERED: ATOR1TAB21 PO (10:21)
[2023-08-21] MEDS ORDERED: FLUT1BLS2 INH (10:21)
[2023-08-21] MEDS ORDERED: FERR32TA PO (10:21)
[2023-08-21] MEDS ORDERED: MIRA33506 PO (10:21)
[2023-08-21] MEDS ORDERED: FLOM0.4C39 PO (10:21)
== END 2023-08-21 14:20 | DRG 521 ==
LOC: M ED 18:10 → EDBD 18:10 → M ED INP 23:45 → ENRESERV 08-05 01:02 → M MSPAV 08-05 03:40 → M PCU 08-06 18:00 → M MSPAV 08-12 19:45
PROVIDERS: ADMIT Internal Medicine; ATTEND Internal Medicine Nephrology
PROC: 0SRS0J9 Replacement of Left Hip Joint, Femoral Surface with Synthetic Substitute, Cemented, Open Approach (ICD-10-PCS; principal; 2023-08-06 08:00)
PROC: B246ZZZ Ultrasonography of Right and Left Heart (ICD-10-PCS; 2023-08-08)
DX: S72.002A Fracture of unspecified part of neck of left femur, initial encounter for closed fracture (principal); J69.0 Pneumonitis due to inhalation of food and vomit; I63.81 Other cerebral infarction due to occlusion or stenosis of small artery; J96.11 Chronic respiratory failure with hypoxia; J44.1 Chronic obstructive pulmonary disease with (acute) exacerbation; Z66 Do not resuscitate; F17.210 Nicotine dependence, cigarettes, uncomplicated; R29.6 Repeated falls; H61.20 Impacted cerumen, unspecified ear; W01.0XXA Fall on same level from slipping, tripping and stumbling without subsequent striking against object, initial encounter; Y92.009 Unspecified place in unspecified non-institutional (private) residence as the place of occurrence of the external cause; Y93.9 Activity, unspecified; R91.1 Solitary pulmonary nodule; I10 Essential (primary) hypertension; J47.9 Bronchiectasis, uncomplicated; J84.10 Pulmonary fibrosis, unspecified; H70.90 Unspecified mastoiditis, unspecified ear; E87.70 Fluid overload, unspecified; M48.061 Spinal stenosis, lumbar region without neurogenic claudication; F03.90 Unspecified dementia, unspecified severity, without behavioral disturbance, psychotic disturbance, mood disturbance, and anxiety; N40.1 Benign prostatic hyperplasia with lower urinary tract symptoms; Z79.899 Other long term (current) drug therapy; Z20.7 Contact with and (suspected) exposure to pediculosis, acariasis and other infestations; Z99.81 Dependence on supplemental oxygen

== ENCOUNTER 2023-09-12 02:06 | Inpatient (IN) | payer MEDICARE ==
[~2023-09-12] VITALS: Ht 172.7 cm; Wt 64.0 kg
[2023-09-12] VITALS (7 sets, daily range): BP systolic 121–141; BP diastolic 54–65; TEMP 97.4–98.2; O2SAT 86–99
[~2023-09-12 02:06] MED LIST: ACET1TAB55 PO; ASPI81TAEC PO; ATOR1TAB21 PO; FERR32TA PO; FLOM0.4C39 PO; FLUT1BLS2 INH; FLUTISP NARES; GUAI600T12 PO; LEVA0.6322 NEB; MIRA33506 PO; MOM30SS2 PO; OLAN2.5T25 PO; OXYC-517 PO; SENN-52 PO; Sodium Chloride Nasal Spray
[2023-09-12] MEDS ORDERED: ONDANSETRON 4MG 2ML VIAL IV PRN (06:00)
[2023-09-12] MEDS ORDERED: HYDROMORPHONE HCL 0.5 MG/ 0.5 ML SYRINGE IV PRN (06:00)
[2023-09-12] MEDS: LR 1,000 ML IV SCH (06:46)
[2023-09-12 07:05] LABS: HEMATOCRIT 29.5 % (42.0-52.0); HEMOGLOBIN 8.8 g/dl (13.5-17.5); MEAN CORPUSCULAR HEMOGLOBIN 26.3 pg (27.0-33.0); MEAN CORPUSCULAR HGB CONC 29.8 g/dl (32.0-36.5); MEAN CORPUSCULAR VOLUME 88.1 fl (80.0-96.0); PLATELET COUNT, AUTOMATED 306 10^3/uL (150-450); RED BLOOD COUNT 3.35 10^6/uL (4.30-6.10); WHITE BLOOD COUNT 13.5 10^3/uL (4.0-10.0)
[2023-09-12 07:33] LABS: BLOOD UREA NITROGEN 25 MG/DL (9-23); CALCIUM LEVEL 7.4 MG/DL (8.3-10.6); CARBON DIOXIDE LEVEL 31 MMOL/L (20-31); CHLORIDE LEVEL 114 MMOL/L (98-107); CREATININE FOR GFR 0.72 MG/DL (0.70-1.30); GLOMERULAR FILTRATION RATE > 60.0 (>35); GLUCOSE, FASTING 79 MG/DL (74-106); POTASSIUM SERUM 3.2 MMOL/L (3.5-5.1); SODIUM LEVEL 152 MMOL/L (136-145)
[2023-09-12] MEDS ORDERED: ACET-897 PO (08:35)
[2023-09-12] MEDS ORDERED: IPRA0.00 INH (08:35)
[2023-09-12] MEDS ORDERED: MIRA3350 PO (08:35)
[2023-09-12] MEDS ORDERED: HOME MED LIST COMPLETE! XX SCH (08:35)
[2023-09-12] MEDS ORDERED: ALB2.5NEB INH (08:35)
[2023-09-12] MEDS ORDERED: MUCI600T31 PO (08:35)
[2023-09-12] MEDS ORDERED: OLAN2.5T25 PO (08:35)
[2023-09-12] MEDS ORDERED: BISO5TAB14 PO (08:35)
[2023-09-12] MEDS ORDERED: FLOM0.4C39 PO (08:35)
[2023-09-12] MEDS ORDERED: OMEP-173 PO (08:35)
[2023-09-12] MEDS ORDERED: FERR324T21 PO (08:35)
[2023-09-12] MEDS ORDERED: ATOR1TAB21 PO (08:35)
[2023-09-12] MEDS ORDERED: FLON1SPR NARES (08:35)
[2023-09-12] MEDS ORDERED: FURO40TA2 PO (08:35)
[2023-09-12 08:46] LABS: THYROID STIMULATING HORMONE 0.979 uIU/ML (0.55-4.78)
[2023-09-12 08:50] LABS: PROCALCITONIN 0.15 ng/ml
[2023-09-12] MEDS: FERROUS GLUCONATE 324 MG TAB PO SCH (09:00)
[2023-09-12] MEDS: bisoproloL fumarate 5 MG TAB PO SCH (09:00)
[2023-09-12] MEDS: OMEPRAZOLE 20MG CAP PO SCH (09:00)
[2023-09-12 09:22] LABS: ALBUMIN 1.7 G/DL (3.2-5.2); ALKALINE PHOSPHATASE 62 U/L (46-116); ALT/SGPT 16 U/L (7.0-40); AST/SGOT 15 U/L (<34); BILIRUBIN,DIRECT 0.5 MG/DL (<0.4)
[2023-09-12 09:39] LABS: ABG BASE EXCESS 3.4 (-2.0-2.0); ABG HCO3 26.8 MMOL/L (22.0-26.0); ABG O2 SATURATION 95.5 % (95.0-99.0); ABG PARTIAL PRESSURE CO2 35.5 mmHg (35.0-45.0); ABG PARTIAL PRESSURE O2 77.1 mmHg (75.0-100.0); ABG STANDARD HCO3 27.5 MMOL/L. (22.0-26.0); ABG TOTAL CO2 27.8 MMOL/L (23.0-31.0); ABG pH (ARTERIAL) 7.495 UNITS (7.350-7.450)
[2023-09-12] MEDS ORDERED: IPRATROPIUM 0.5MG/ALBUTEROL 2.5MG INH SOL UD 3ML (DUONEB) INH PRN (09:50)
[2023-09-12] MEDS ORDERED: ALBUTEROL SULFATE 2.5MG/0.5ML INH NEB SOLN INH PRN (09:50)
[2023-09-12] MEDS ORDERED: FLUTICASONE PROP 0.05% NASAL SPRAY 16 GM (FLONASE) NARES PRN (09:50)
[2023-09-12 09:55] LABS: ERYTHROCYTE SEDIMENTATION RATE 25 mm/hr (0-20)
[2023-09-12] MEDS: PIPERACILLIN/TAZOBACTAM SOD 3.375 GM in D5W MINI-BAG PLUS 50 ML IV SCH (11:02)
[2023-09-12] MEDS: TAMSULOSIN 0.4 MG CAP PO SCH (21:00)
[2023-09-12] MEDS: ATORVASTATIN 20 MG TAB PO SCH (21:00)
[2023-09-12] MEDS: ENOXAPARIN 60MG/0.6ML SYRINGE (J1650 PER 10MG) SC ONE (23:08)
[2023-09-12] MEDS: D5W 1,000 ML IV SCH (23:44)
[2023-09-13] VITALS (7 sets, daily range): BP systolic 128–155; BP diastolic 66–94; TEMP 96.3–98.5; O2SAT 10–100
[2023-09-13 06:10] LABS: HEMATOCRIT 27.7 % (42.0-52.0); HEMOGLOBIN 8.3 g/dl (13.5-17.5); MEAN CORPUSCULAR HEMOGLOBIN 26.9 pg (27.0-33.0); MEAN CORPUSCULAR VOLUME 89.6 fl (80.0-96.0); PLATELET COUNT, AUTOMATED 302 10^3/uL (150-450); RED BLOOD COUNT 3.09 10^6/uL (4.30-6.10); WHITE BLOOD COUNT 10.2 10^3/uL (4.0-10.0)
[2023-09-13 06:24] LABS: BLOOD UREA NITROGEN 20 MG/DL (9-23); CALCIUM LEVEL 7.3 MG/DL (8.3-10.6); CARBON DIOXIDE LEVEL 31 MMOL/L (20-31); CHLORIDE LEVEL 112 MMOL/L (98-107); CREATININE FOR GFR 0.84 MG/DL (0.70-1.30); GLOMERULAR FILTRATION RATE > 60.0 (>35); GLUCOSE, FASTING 82 MG/DL (74-106); POTASSIUM SERUM 3.1 MMOL/L (3.5-5.1); SODIUM LEVEL 151 MMOL/L (136-145)
[2023-09-13] MEDS: KCL 10MEQ/100ML SWI (KRUN) 10 MEQ in IV 1 EA IV SCH (07:50)
[2023-09-13 08:00] LABS: MAGNESIUM LEVEL 1.7 MG/DL (1.8-2.4)
[2023-09-13 08:03] LABS: OSMOLALITY SERUM 312 MOSM/KG (280-301)
[2023-09-13] MEDS ORDERED: ENOXAPARIN 60MG/0.6ML SYRINGE (J1650 PER 10MG) SC SCH (11:00)
[2023-09-13] MEDS: REMDESIVIR 200 MG in NS 250 ML IV ONE (11:10)
[2023-09-13] MEDS: FUROSEMIDE 20MG/2ML VIAL IV ONE (14:31)
[2023-09-13] MEDS: ENOXAPARIN 60MG/0.6ML SYRINGE (J1650 PER 10MG) SC ONE (14:39)
[2023-09-13] MEDS: ENOXAPARIN 60MG/0.6ML SYRINGE (J1650 PER 10MG) SC SCH (22:24)
[2023-09-14] VITALS (7 sets, daily range): BP systolic 128–170; BP diastolic 60–86; TEMP 97.1–97.9; O2SAT 97–99
[2023-09-14 06:26] LABS: HEMATOCRIT 27.1 % (42.0-52.0); HEMOGLOBIN 8.1 g/dl (13.5-17.5); MEAN CORPUSCULAR HEMOGLOBIN 26.8 pg (27.0-33.0); MEAN CORPUSCULAR HGB CONC 29.9 g/dl (32.0-36.5); MEAN CORPUSCULAR VOLUME 89.7 fl (80.0-96.0); PLATELET COUNT, AUTOMATED 272 10^3/uL (150-450); RED BLOOD COUNT 3.02 10^6/uL (4.30-6.10)
[2023-09-14 06:53] LABS: IRON (FE) 18 UG/DL (65-175); PERCENT SATURATION 9.7 % (19.7-50.0); TOTAL IRON BINDING CAPACITY 185 UG/DL (250-425)
[2023-09-14 07:00] LABS: BLOOD UREA NITROGEN 20 MG/DL (9-23); CALCIUM LEVEL 7.3 MG/DL (8.3-10.6); CARBON DIOXIDE LEVEL 33 MMOL/L (20-31); CHLORIDE LEVEL 112 MMOL/L (98-107); CREATININE FOR GFR 0.85 MG/DL (0.70-1.30); FERRITIN 253.6 NG/ML (10.5-307.3); FOLATE 7.33 NG/ML (>5.4); GLOMERULAR FILTRATION RATE > 60.0 (>35); GLUCOSE, FASTING 134 MG/DL (74-106); POTASSIUM SERUM 2.7 MMOL/L (3.5-5.1); SODIUM LEVEL 146 MMOL/L (136-145); VITAMIN B12 LEVEL 616 PG/ML (211-911)
[2023-09-14] MEDS: KCL 10MEQ/100ML SWI (KRUN) 10 MEQ in IV 1 EA IV SCH ×2 (08:29→20:05)
[2023-09-14] MEDS: POTASSIUM CHL PWD 20MEQ PACKET PO SCH (08:29)
[2023-09-14] MEDS ORDERED: REMDESIVIR 100 MG in NS 250 ML IV SCH (11:00)
[2023-09-14 15:08] LABS: BLOOD UREA NITROGEN 20 MG/DL (9-23); CALCIUM LEVEL 7.3 MG/DL (8.3-10.6); CARBON DIOXIDE LEVEL 33 MMOL/L (20-31); CHLORIDE LEVEL 109 MMOL/L (98-107); CREATININE FOR GFR 0.81 MG/DL (0.70-1.30); GLOMERULAR FILTRATION RATE > 60.0 (>35); GLUCOSE, FASTING 139 MG/DL (74-106); POTASSIUM SERUM 3.3 MMOL/L (3.5-5.1); SODIUM LEVEL 147 MMOL/L (136-145)
[2023-09-14] MEDS: FUROSEMIDE 20MG/2ML VIAL IV SCH (17:00)
[2023-09-14] MEDS: amLODIPine 5 MG TAB PO ONE (17:25)
[2023-09-14] MEDS: SPIRONOLACTONE 50 MG TAB PO ONE (17:25)
[2023-09-14] MEDS: POTASSIUM CHLORIDE INJ 40 MEQ in D5W 1,000 ML IV SCH (23:09)
[2023-09-15 06:08] VITALS: TEMP 97.7; O2SAT 96
[2023-09-15 07:19] LABS: BASO % 0.5 % (0.0-1.0); EOS # 0.1 10^3/uL (0.0-0.5); EOS % 1.6 % (0.0-3.0); HEMATOCRIT 27.7 % (42.0-52.0); HEMOGLOBIN 8.3 g/dl (13.5-17.5); LYMPH # 1.3 10^3/uL (1.5-5.0); LYMPH % 15.4 % (24.0-44.0); MEAN CORPUSCULAR HEMOGLOBIN 26.3 pg (27.0-33.0); MEAN CORPUSCULAR VOLUME 87.9 fl (80.0-96.0); MONO # 0.6 10^3/uL (0.0-0.8); MONO % 7.4 % (2.0-8.0); NEUTROPHILS # 6.2 10^3/uL (1.5-8.5); NEUTROPHILS % 73.8 % (36.0-66.0); PLATELET COUNT, AUTOMATED 292 10^3/uL (150-450); RED BLOOD COUNT 3.15 10^6/uL (4.30-6.10); WHITE BLOOD COUNT 8.4 10^3/uL (4.0-10.0)
[2023-09-15 07:37] LABS: BLOOD UREA NITROGEN 18 MG/DL (9-23); CALCIUM LEVEL 7.4 MG/DL (8.3-10.6); CARBON DIOXIDE LEVEL 30 MMOL/L (20-31); CHLORIDE LEVEL 110 MMOL/L (98-107); CREATININE FOR GFR 0.76 MG/DL (0.70-1.30); GLOMERULAR FILTRATION RATE > 60.0 (>35); GLUCOSE, FASTING 110 MG/DL (74-106); MAGNESIUM LEVEL 1.6 MG/DL (1.8-2.4); POTASSIUM SERUM 3.3 MMOL/L (3.5-5.1); SODIUM LEVEL 146 MMOL/L (136-145)
[2023-09-15] MEDS: BISOPROLOL FUM 2.5 MG PER 1/2TAB PO SCH (09:00)
[2023-09-15] MEDS: MAG SULF 1GM/100ML (MAG RUN) 1 GM in IV 1 EA IV ONE (10:25)
[2023-09-15] MEDS: KCL 10MEQ/100ML SWI (KRUN) 10 MEQ in IV 1 EA IV SCH (11:51)
[2023-09-15] MEDS: ACETAMINOPHEN TAB 650MG DOSE (2X325MG) PO PRN (11:56)
[2023-09-15 14:00] VITALS: BP 134/65; TEMP 97.7; O2SAT 95
[2023-09-15 20:09] VITALS: BP 121/61; TEMP 98.1; O2SAT 93
[2023-09-16 06:00] LABS: BASO % 0.4 % (0.0-1.0); EOS # 0.2 10^3/uL (0.0-0.5); HEMATOCRIT 27.2 % (42.0-52.0); HEMOGLOBIN 8.3 g/dl (13.5-17.5); LYMPH # 1.5 10^3/uL (1.5-5.0); LYMPH % 16.8 % (24.0-44.0); MEAN CORPUSCULAR HEMOGLOBIN 26.8 pg (27.0-33.0); MEAN CORPUSCULAR HGB CONC 30.5 g/dl (32.0-36.5); MEAN CORPUSCULAR VOLUME 87.7 fl (80.0-96.0); MONO # 0.7 10^3/uL (0.0-0.8); MONO % 7.3 % (2.0-8.0); NEUTROPHILS # 6.4 10^3/uL (1.5-8.5); PLATELET COUNT, AUTOMATED 274 10^3/uL (150-450); WHITE BLOOD COUNT 8.9 10^3/uL (4.0-10.0)
[2023-09-16 06:22] VITALS: BP 112/61; TEMP 98.1; O2SAT 95
[2023-09-16 06:32] LABS: BLOOD UREA NITROGEN 16 MG/DL (9-23); CALCIUM LEVEL 7.2 MG/DL (8.3-10.6); CARBON DIOXIDE LEVEL 31 MMOL/L (20-31); CHLORIDE LEVEL 105 MMOL/L (98-107); CREATININE FOR GFR 0.83 MG/DL (0.70-1.30); GLOMERULAR FILTRATION RATE > 60.0 (>35); GLUCOSE, FASTING 140 MG/DL (74-106); POTASSIUM SERUM 3.6 MMOL/L (3.5-5.1); SODIUM LEVEL 141 MMOL/L (136-145)
[2023-09-16] MEDS: FERROUS SULFATE 300MG/5ML UDC LIQUID PO SCH (08:45)
[2023-09-16] MEDS ORDERED: FERROUS SULFATE 325MG TAB PO SCH (09:00)
[2023-09-16 14:00] VITALS: BP 117/61; TEMP 97.7; O2SAT 94
[2023-09-16 21:25] VITALS: BP 150/70; TEMP 97.5; O2SAT 97
[2023-09-17 04:39] VITALS: BP 112/52; TEMP 97.3; O2SAT 94
[2023-09-17 06:17] LABS: BASO % 0.3 % (0.0-1.0); EOS # 0.2 10^3/uL (0.0-0.5); EOS % 1.7 % (0.0-3.0); HEMATOCRIT 27.7 % (42.0-52.0); HEMOGLOBIN 8.5 g/dl (13.5-17.5); LYMPH # 1.6 10^3/uL (1.5-5.0); LYMPH % 15.6 % (24.0-44.0); MEAN CORPUSCULAR HEMOGLOBIN 26.6 pg (27.0-33.0); MEAN CORPUSCULAR HGB CONC 30.7 g/dl (32.0-36.5); MEAN CORPUSCULAR VOLUME 86.8 fl (80.0-96.0); MONO # 0.6 10^3/uL (0.0-0.8); MONO % 5.6 % (2.0-8.0); NEUTROPHILS # 7.6 10^3/uL (1.5-8.5); NEUTROPHILS % 74.9 % (36.0-66.0); PLATELET COUNT, AUTOMATED 270 10^3/uL (150-450); RED BLOOD COUNT 3.19 10^6/uL (4.30-6.10); WHITE BLOOD COUNT 10.1 10^3/uL (4.0-10.0)
[2023-09-17 06:46] LABS: BLOOD UREA NITROGEN 16 MG/DL (9-23); CALCIUM LEVEL 6.8 MG/DL (8.3-10.6); CARBON DIOXIDE LEVEL 30 MMOL/L (20-31); CHLORIDE LEVEL 102 MMOL/L (98-107); CREATININE FOR GFR 0.83 MG/DL (0.70-1.30); GLOMERULAR FILTRATION RATE > 60.0 (>35); GLUCOSE, FASTING 153 MG/DL (74-106); POTASSIUM SERUM 3.5 MMOL/L (3.5-5.1); SODIUM LEVEL 138 MMOL/L (136-145)
[2023-09-17] MEDS: FUROSEMIDE 40 MG TAB PO SCH (08:36)
[2023-09-17 14:20] VITALS: BP 115/59; TEMP 97.7; O2SAT 95
[2023-09-17 20:03] VITALS: BP 132/65; TEMP 97.9; O2SAT 96
[2023-09-18 06:01] VITALS: TEMP 97.9; O2SAT 92
[2023-09-18 06:21] VITALS: BP 133/67; TEMP 97.2; O2SAT 93
[2023-09-18 06:38] LABS: BASO # 0.1 10^3/uL (0.0-0.2); BASO % 0.6 % (0.0-1.0); EOS # 0.2 10^3/uL (0.0-0.5); EOS % 1.8 % (0.0-3.0); HEMATOCRIT 28.8 % (42.0-52.0); HEMOGLOBIN 8.9 g/dl (13.5-17.5); LYMPH # 1.7 10^3/uL (1.5-5.0); LYMPH % 15.4 % (24.0-44.0); MEAN CORPUSCULAR HGB CONC 30.9 g/dl (32.0-36.5); MEAN CORPUSCULAR VOLUME 87.3 fl (80.0-96.0); MONO # 0.7 10^3/uL (0.0-0.8); MONO % 6.4 % (2.0-8.0); NEUTROPHILS # 8.1 10^3/uL (1.5-8.5); NEUTROPHILS % 74.1 % (36.0-66.0); PLATELET COUNT, AUTOMATED 271 10^3/uL (150-450); WHITE BLOOD COUNT 10.9 10^3/uL (4.0-10.0)
[2023-09-18 07:11] LABS: BLOOD UREA NITROGEN 15 MG/DL (9-23); CALCIUM LEVEL 7.8 MG/DL (8.3-10.6); CARBON DIOXIDE LEVEL 31 MMOL/L (20-31); CHLORIDE LEVEL 103 MMOL/L (98-107); CREATININE FOR GFR 0.74 MG/DL (0.70-1.30); GLOMERULAR FILTRATION RATE > 60.0 (>35); GLUCOSE, FASTING 86 MG/DL (74-106); POTASSIUM SERUM 3.9 MMOL/L (3.5-5.1); SODIUM LEVEL 140 MMOL/L (136-145)
[2023-09-18 08:27] VITALS: BP 133/67
[2023-09-18] MEDS ORDERED: LASI20TA3 PO (09:16)
[2023-09-18] MEDS ORDERED: BISO5TAB14 PO (09:16)
[2023-09-18] MEDS ORDERED: ELIQ5TAB PO (09:17)
== END 2023-09-18 13:50 | DRG 698 ==
LOC: M ED INP 05:59 → M PCU 06:00 → OBSVTOIN 08:48 → M MS5PR 09-14 16:45
PROVIDERS: ADMIT Internal Medicine; ATTEND Internal Medicine Nephrology
DX: T83.511A Infection and inflammatory reaction due to indwelling urethral catheter, initial encounter (principal); J96.21 Acute and chronic respiratory failure with hypoxia; I50.33 Acute on chronic diastolic (congestive) heart failure; G93.41 Metabolic encephalopathy; C34.11 Malignant neoplasm of upper lobe, right bronchus or lung; E87.0 Hyperosmolality and hypernatremia; J98.11 Atelectasis; N39.0 Urinary tract infection, site not specified; N40.1 Benign prostatic hyperplasia with lower urinary tract symptoms; J84.10 Pulmonary fibrosis, unspecified; I69.331 Monoplegia of upper limb following cerebral infarction affecting right dominant side; J44.9 Chronic obstructive pulmonary disease, unspecified; F03.90 Unspecified dementia, unspecified severity, without behavioral disturbance, psychotic disturbance, mood disturbance, and anxiety; R29.6 Repeated falls; E87.6 Hypokalemia; E83.42 Hypomagnesemia; D50.9 Iron deficiency anemia, unspecified; J47.9 Bronchiectasis, uncomplicated; I11.0 Hypertensive heart disease with heart failure; E78.5 Hyperlipidemia, unspecified; R33.9 Retention of urine, unspecified; M47.816 Spondylosis without myelopathy or radiculopathy, lumbar region; M75.101 Unspecified rotator cuff tear or rupture of right shoulder, not specified as traumatic; M48.061 Spinal stenosis, lumbar region without neurogenic claudication; L89.150 Pressure ulcer of sacral region, unstageable; H70.92 Unspecified mastoiditis, left ear; Y84.6 Urinary catheterization as the cause of abnormal reaction of the patient, or of later complication, without mention of misadventure at the time of the procedure; Z99.81 Dependence on supplemental oxygen; Z87.891 Personal history of nicotine dependence; Z79.899 Other long term (current) drug therapy; Z96.642 Presence of left artificial hip joint; Z86.718 Personal history of other venous thrombosis and embolism